=== PATIENT | male | born 1995 | race Two or more races ===

== ENCOUNTER 2018-05-15 05:25 | Emergency (ER) | payer OTHER ==
[~2018-05-15] VITALS: Ht 185.4 cm; Wt 75.0 kg
[2018-05-15 05:27] VITALS: BP 137/86
--- NOTE | 2018-05-15 07:55 | NUR ---
NO ANSWER AT [id number]
--- NOTE | 2018-05-15 07:59 | NUR ---
NO ANS X 2
--- NOTE | 2018-05-15 08:05 | NUR ---
NO ANS X 3
== END 2018-05-15 08:07 | disposition left against medical advice (07) ==
LOC: ED 08:00
DX: S01.511A Laceration without foreign body of lip, initial encounter (principal); F10.129 Alcohol abuse with intoxication, unspecified; Z53.21 Procedure and treatment not carried out due to patient leaving prior to being seen by health care provider; Y04.0XXA Assault by unarmed brawl or fight, initial encounter; Y93.89 Activity, other specified; Y92.89 Other specified places as the place of occurrence of the external cause; Y99.8 Other external cause status